=== PATIENT | female | born 1990 | race Caucasian/White ===

== ENCOUNTER 2017-05-13 21:24 | Emergency (ER) | payer OTHER ==
[~2017-05-13] VITALS: Ht 167.6 cm; Wt 72.0 kg
[2017-05-13 21:26] VITALS: BP 145/84; PULSE 91; RESP 16; TEMP 97.9; O2SAT 98
[2017-05-13] MEDS ORDERED: TYLETAB34 PO (21:32)
[2017-05-13] MEDS ORDERED: DEPO150I IM (21:32)
[2017-05-13] MEDS ORDERED: LEXA20TA PO (21:32)
[2017-05-13] MEDS ORDERED: SODIUM CHLOR 0.9% 1000 ML INJ 1,000 ML IV ONE (22:21)
[2017-05-13] MEDS ORDERED: MORPHINE SULFATE 4 MG/ML INJ IV PUSH ONE (22:30)
[2017-05-13] MEDS ORDERED: ONDANSETRON HCL 4 MG/2 ML VIAL IVP ONE (22:30)
--- NOTE | 2017-05-13 22:53 | PD ---
HPI Chief Complaint: GI Complaint Time Seen by Provider: 22:10 Travel History International Travel<30 days: No Contact w/Intl Traveler<30days: No Traveled to known affect area: No History of Present Illness HPI Patient is a 26-year-old female presenting to emergency for evaluation of a headache. She states she's had a headache for 3 days, she is unable to take NSAID's due to upcoming surgery next week of her cervical spine. Patient reports that her headache is similar to headache she has had in the past, she normally takes Toradol for pain but her surgeon advised her to avoid anything that fits in her blood. She states that today around 1 PM she started feeling nauseated and has vomited. She also reports photophobia. She denies any weakness or focal abnormalities. She is scheduled to have a cervical discectomy next week. PFSH Past Medical History Musculoskeletal: Yes (HERNIATED DISC) Reproductive: Yes (ETOPIC ) Migraines: Yes Tetanus Vaccination: Unknown Influenza Vaccination: No ?: Not LMP: DEPO Past Surgical History Appendectomy: Yes Gynecologic Surgery: Yes (ETOPIC ) Social History Alcohol Use: No Tobacco Use: No Substance Use: No Allergies-Medications (Allergen,Severity, Reaction): Coded Allergies: No Known Allergies (Unverified , 05/13/17) Reported Meds & Prescriptions Reported Meds & Active Scripts Active Sumatriptan (Sumatriptan Succinate) 50 Mg Tab 50 Mg PO ONCE PRN If a satisfactory response has not been obtained at 2 hours, a second dose may be administered Zofran Odt (Ondansetron Odt) 4 Mg Tab 4 Mg SL Q6HR PRN 3 Days Reported Lexapro (Escitalopram Oxalate) 20 Mg Tab 20 Mg PO DAILY Depo-Provera Inj (Medroxyprogesterone Inj) Unknown Strength Inj Unknown Dose IM ONCE Tylenol-Codeine #3 (Acetaminophen-Codeine) 300-30 mg Tab 1 Tab PO Q4H PRN Review of Systems Except as stated in HPI: all other systems reviewed are Neg Eyes: Positive: Photophobia HENT: Positive: Headaches Gastrointestinal: Positive: Nausea, Vomiting Physical Exam Narrative GENERAL: Well-developed, well-nourished, alert female. Appears uncomfortable, in no acute distress. SKIN: Focused skin assessment warm/dry. HEAD: Atraumatic. Normocephalic. EYES: Pupils equal and round. No scleral icterus. No injection or drainage. ENT: No nasal bleeding or discharge. Mucous membranes pink and moist. NECK: Trachea midline. No JVD. CARDIOVASCULAR: Regular rate and rhythm. No murmur appreciated. RESPIRATORY: No accessory muscle use. Clear to auscultation. Breath sounds equal bilaterally. GASTROINTESTINAL: Abdomen soft, non-tender, nondistended. Hepatic and splenic margins not palpable. MUSCULOSKELETAL: No obvious deformities. No clubbing. No cyanosis. No edema. NEUROLOGICAL: Awake and alert. No obvious cranial nerve deficits. Motor grossly within normal limits. Normal speech. PSYCHIATRIC: Appropriate mood and affect; insight and judgment normal. Data Data Last Documented VS Vital Signs Date Time Temp Pulse Resp B/P Pulse Ox O2 Delivery O2 Flow Rate FiO2 05/13/17 21:26 97.9 91 16 145/84 98 Room Air Orders Ondansetron Inj (Zofran Inj) (05/13/17 22:30) Morphine Inj (Morphine Inj) (05/13/17 22:30) Sodium Chlor 0.9% 1000 Ml Inj (Ns 1000 M (05/13/17 22:21) Iv Access Insert/Monitor (05/13/17 22:21) Sumatriptan Inj (Imitrex Inj) (05/13/17 23:45) Prochlorperazine Inj (Compazine Inj) (05/13/17 23:45) MDM Medical Decision Making Medical Screen Exam Complete: Yes Emergency Medical Condition: Yes Interpretation(s) Vital Signs Date Time Temp Pulse Resp B/P Pulse Ox O2 Delivery O2 Flow Rate FiO2 05/13/17 21:26 97.9 91 16 145/84 98 Room Air Differential Diagnosis Cluster headache versus migraine versus tension-type headache versus other Narrative Course Patient is a 26-year-old female presenting to our evaluation of a headache it's been ongoing for 3 days. Patient is neurologically intact, headache is similar to headaches in the past. At this time patient is unable to take anti- inflammatory medication due to an upcoming surgery on the advice of her surgeon. IV fluids, morphine, Zofran ordered. Patient was reassessed, she continued to have headache and nausea. Sumatriptan has been effective at migraine in the past. At this time patient will be given sumatriptan and as well as Compazine. Patient reassessed, her symptoms have resolved. She appears much more comfortable at this time. Patient will be given prescription for sumatriptan as well as Zofran. She is encouraged to follow up with her primary doctor or return to emergency department for any new or worsening symptoms. She verbalized understanding of these instructions. Patient is stable for discharge. Diagnosis Primary Impression: Migraine headache Qualified Code: G43.909 - Migraine without status migrainosus, not intractable , unspecified migraine type Referrals: Primary Care Physician Patient Instructions: General Instructions, Migraine Headache (ED) Additional Instructions: Follow-up with your primary doctor Take medications as needed and as directed Return to emergency department for any new or worsening symptoms Med/Other Pt SpecificInfo: Prescription(s) given Scripts Sumatriptan 50 Mg Tab50 Mg PO ONCE PRN (MIGRAINE HEADACHE) #9 TAB Ref 0 If a satisfactory response has not been obtained at 2 hours, a second dose may be administered Prov:Jenny Ivan 05/14/17 Ondansetron Odt (Zofran Odt)4 Mg Tab4 Mg SL Q6HR PRN (Nausea/Vomiting) 3 Days Ref 0 Prov:Jenny Ivan 05/14/17 Disposition: 01 DISCHARGE HOME Condition: Stable Jenny Ivan May 13, 2017 22:53
[2017-05-13] MEDS ORDERED: SUMAtriptan INJ 6 MG/0.5 ML VIAL SQ ONE (23:45)
[2017-05-13] MEDS ORDERED: PROCHLORPERAZINE INJ 10 MG/2 ML VIAL IV PUSH ONE (23:45)
[2017-05-14] MEDS ORDERED: SUMA50TA2 PO (00:58)
[2017-05-14] MEDS ORDERED: ZOFR4TAB3 SL (00:58)
== END 2017-05-14 01:05 | disposition home or self-care (01) ==
LOC: NEPD 21:24
DX: G43.909 Migraine, unspecified, not intractable, without status migrainosus (principal); Z79.899 Other long term (current) drug therapy
CPT/HCPCS: 96372; 96374; 96375; 99284; J0780; J2270; J2405; J3030; J7030